=== PATIENT | female | born 1960 ===

== ENCOUNTER 2022-01-19 03:04 | Emergency (ER) | payer OTHER ==
--- OUTSIDE RECORDS SUMMARY | 2022-01-19 03:07 | XMS REPORT | Continuity of Care Document ---
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 UR HCG QUAL (test NEGATIVE 1. Very d ilute urine code = HCGQLU) specimens, as indicated by a lowspecific g ravity, may not contain rep resentative levels ofhCG. 2 . False negative result s may occur when the levels of hCGare below the sensi tivity level of the test. If is still suspec dann, a first morningurine sp ecimen should be colle cted 48 hours later and tested. COVID 19 Asymptomatic IH [id number] 13:00:00 Test Item Value Reference Range Interpretation Comments COVID 19 NEGATIVE NEGATIVE This test has b een Asymptomatic IH AG authorize d only for the (test code = detection ofpro teins from COVNONPUIAG) SARS-CoV-2, not for any other viruses orpathogens. Ne gative results should be treated as presumptive andconfirmed wi th a molecular assay , if necessary for patientmanageme nt. Negative result s do not rule out COVID- 19 andshould not b e used as the sole basis for treatment orpat ient management deci sions, including infec tion controldecision s. Negative result s should be considered i n thecontext of a patient's recent exposure s, history and thepresence of clinical signs and symptoms consis tent withCOVID-19. T his test has not been FD A cleared or approved; th e test hasbeen authorpedrito linares by FDA under an Emerge ncy Use Authorization(E UA) for use by laborato umang certified under the CLIA thatmeet the re quirements to perform mode rate, high or waivedcomple xity tests. This margarita t is authorized for use at thePoint of Car e (POC), i.e., in patien t care settingsoperati ng under a CLIA Certificat e of Waiver, Certifi malu ofCompliance, o r Certificate of Accreditation. This test is only authori milagros for the duration of thedeclaration that circumstances e xist justifying theauthorizatio n of emergency use o f in vitro diagnostic test sfor detection and/o r diagnosis of CO VID-19 under Rgpleie59 4(b)(1) of the Act, 21 U.S .C. 360bbb-3(b)(1), unless theauthorizatio n is terminated or r evoked sooner.
[2022-01-19] MEDS ORDERED: KETOROLAC 30 MG/ML INJ ONE (03:35)
[2022-01-19] MEDS ORDERED: NA CHLORIDE 0.9% 1,000 ML ONE (03:35)
[2022-01-19] MEDS ORDERED: ONDANSETRON 4 MG/2 ML VIAL ONE (03:35)
[2022-01-19 03:36] LABS: Absolute Lymphocytes (CBC) 1.5 K/uL (0.7-4.9); Hematocrit 44.1 % (36.0-45.0); Lymphocytes % 12.1 % (15.3-44.8); MCV 84.9 fL (80-100); MPV 8.3 fL (7.6-11.3)
[2022-01-19 03:54] LABS: Albumin 3.8 g/dL (3.4-5.0); Bilirubin Total 0.3 mg/dL (0.2-1.0); Potassium 3.5 mmol/L (3.5-5.1)
[2022-01-19 04:19] LABS: Urine Blood 1+ (Negative); Urine Glucose Negative (Negative); Urine Protein Negative (Negative); Urine Specific Gravity 1.025 (1.005-1.030)
[2022-01-19 04:59] LABS: Urine Bacteria <20 /HPF (<20); Urine Mucus 2+ /HPF (None Seen); Urine RBC <5 /HPF (None Seen)
--- NOTE | 2022-01-19 07:08 | ER ---
Nurse's Notes [facility] Name: Jenny Gonzalez Age: 61 yrs Sex: Female : 1960 Arrival Date: 01/19/2022 Time: 03:07 Bed 13 Private MD: Diagnosis: Kidney stone;Left Flank pain Presentation: 01/19 03:16 Chief complaint: Patient states: Sudden LLQ pain while driving home around 2230. ke1 Coronavirus screen: Vaccine status: Patient reports receiving the 2nd dose of the covid vaccine. Ebola Screen: No symptoms or risks identified at this time. Initial Sepsis Screen: Does the patient meet any 2 criteria? No. Patient's initial sepsis screen is negative. Does the patient have a suspected source of infection? No. Patient's initial sepsis screen is negative. Risk Assessment: Do you want to hurt yourself or someone else? Patient reports no desire to harm self or others. Onset of symptoms was January 18, 2022 at 22:30. 03:16 Method Of Arrival: Wheelchair [facility] 03:16 Acuity: SEBASTIEN 3 ke1 Triage Assessment: 03:22 General: Appears uncomfortable, Behavior is crying. Pain: Complains of pain in llQ. GI: ke1 Reports lower abdominal pain. Historical: - Allergies: 03:20 PENICILLINS; ke1 03:20 Morphine; ke1 03:20 Codeine; ke1 03:20 Ciprofloxacin; ke1 03:20 Zithromax; ke1 03:20 Erythromycin; ke1 - PMHx: 03:20 Seizure; ke1 - PSHx: 03:20 knee replacement; ke1 - Immunization history:: Client reports receiving the 2nd dose of the Covid vaccine. - Social history:: Smoking status: Patient denies any tobacco usage or history of. Screenin:23 Abuse screen: Denies threats or abuse. Nutritional screening: No deficits noted. ke1 Tuberculosis screening: No symptoms or risk factors identified. Fall Risk None identified. Assessment: 03:20 GI: Abdomen is round non-distended. ke1 Vital Signs: 03:16 BP 177 / 109; Pulse 89; Resp 19; Temp 97.9; Pulse Ox 94% on R/A; Weight 95.25 kg; ke1 Height 5 ft. 8 in. (172.72 cm); Pain 10/10; 04:10 Pain 2/10; ke1 05:47 BP 162 / 73; Pulse 89; Resp 17; Temp 97.8; Pulse Ox 100% on R/A; Pain 0/10; ke1 03:16 Body Mass Index 31.93 (95.25 kg, 172.72 cm) ke1 ED Course: 03:07 Patient arrived in ED. ja2 03:08 Geronimo Delacruz DO is Attending Physician. ms3 03:16 Juan Carlos Singh RN is Primary Nurse. ke1 03:18 Triage completed. ke1 03:23 Arm band placed on left wrist. ke1 03:23 Bed in low position. Call light in reach. Side rails up X 1. ke1 03:27 Inserted saline lock: 20 gauge in right antecubital area, using aseptic technique. ds4 Blood collected. 03:45 CMP Sent. ke1 05:33 Stephon Genao MD is Referral Physician. ms3 05:45 No provider procedures requiring assistance completed. IV discontinued. ke1 07:08 CT Abd/Pelvis - Without Contrast In Process Unspecified. EDMS Administered Medications: 03:40 Drug: NS 0.9% 1000 ml Route: IV; Rate: 1 bolus; Site: right antecubital; ke1 04:30 Follow up: IV Status: Completed infusion ke1 03:40 Drug: Zofran (Ondansetron) 4 mg Route: IVP; Site: right antecubital; ke1 04:00 Follow up: Response: No adverse reaction ke1 03:40 Drug: Ketorolac 10 mg Route: IVP; Site: right antecubital; ke1 04:10 Follow up: Pain 2/10 Adult; Response: Marked relief of symptoms; Pain is decreased ke1 Medication: 05:47 VIS not applicable for this client. ke1 Outcome: 05:34 Discharge ordered by . ms3 05:46 Discharged to home ambulatory. ke1 05:46 Condition: good 05:46 Discharge instructions given to patient. 05:48 Patient left the ED. ke1 Signatures: Dispatcher [employer] EDMS Tanner Hinton ds4 Geronimo Delacruz DO DO ms3 Rufina Polanco ja2 Juan Carlos Singh RN RN ke1 Corrections: (The following items were deleted from the chart) 05:46 05:46 GI: ke1 ke1
--- NOTE | 2022-01-19 07:08 | EDPHYS ---
Physician Documentation [facility] Name: Jenny Gonzalez Age: 61 yrs Sex: Female : 1960 Arrival Date: 01/19/2022 Time: 03:07 Bed 13 Private MD: ED Physician Geronimo Delacruz HPI: 01/19 03:27 This 61 yrs old Female presents to ER via Wheelchair with complaints of Vomiting, ms3 Abdominal Pain, Flank Pain. 03:27 The patient presents to the emergency department with abdominal pain, of the left lower ms3 quadrant, described as sharp, and does not radiate. Onset: The symptoms/episode began/occurred acutely, 5.5 hour(s) ago. Possible causes: unknown. The symptoms are aggravated by nothing. The symptoms are alleviated by nothing. Associated signs and symptoms: The patient has no apparent associated signs or symptoms. Severity of symptoms: At their worst the symptoms were moderate in the emergency department the symptoms are unchanged Pain is currently a 10 / 10. Historical: - Allergies: 03:20 PENICILLINS; ke1 03:20 Morphine; ke1 03:20 Codeine; ke1 03:20 Ciprofloxacin; ke1 03:20 Zithromax; ke1 03:20 Erythromycin; ke1 - PMHx: 03:20 Seizure; ke1 - PSHx: 03:20 knee replacement; ke1 - Immunization history:: Client reports receiving the 2nd dose of the Covid vaccine. - Social history:: Smoking status: Patient denies any tobacco usage or history of. ROS: 03:27 Constitutional: Negative for fever, and chills. ENT: Negative for injury, pain, and ms3 discharge, Neck: Negative for injury, pain, and swelling, Cardiovascular: Negative for chest pain, and palpitations. Respiratory: Negative for shortness of breath, cough, wheezing, and pleuritic chest pain, MS/Extremity: Negative for injury and deformity, Skin: Negative for injury, rash, and discoloration. 03:27 Abdomen/GI: Positive for abdominal pain. 03:27 Back: Positive for flank pain. 03:27 All other systems are negative. Exam: 03:27 Constitutional: This is a well developed, well nourished patient who is awake, alert, ms3 and in no acute distress. Head/Face: Normocephalic, atraumatic. Neck: Trachea midline, no cervical lymphadenopathy. Supple, full range of motion without nuchal rigidity, or vertebral point tenderness. No Meningismus. Chest/axilla: Normal chest wall appearance and motion. Nontender with no deformity. Cardiovascular: Regular rate and rhythm with a normal S1 and S2. No gallops, murmurs, or rubs. Normal PMI, no JVD. No pulse deficits. Respiratory: Lungs have equal breath sounds bilaterally, clear to auscultation and percussion. No rales, rhonchi or wheezes noted. No increased work of breathing, no retractions or nasal flaring. 03:27 Abdomen/GI: Inspection: abdomen appears normal, Bowel sounds: normal, Palpation: abdomen is soft and non-tender. Vital Signs: 03:16 BP 177 / 109; Pulse 89; Resp 19; Temp 97.9; Pulse Ox 94% on R/A; Weight 95.25 kg; ke1 Height 5 ft. 8 in. (172.72 cm); Pain 10/10; 04:10 Pain 2/10; ke1 05:47 BP 162 / 73; Pulse 89; Resp 17; Temp 97.8; Pulse Ox 100% on R/A; Pain 0/10; ke1 03:16 Body Mass Index 31.93 (95.25 kg, 172.72 cm) ke1 MDM: 03:26 Patient medically screened. ms3 06:00 Data reviewed: vital signs, nurses notes, radiologic studies, and as a result, I will ms3 discharge patient. Counseling: I had a detailed discussion with the patient and/or guardian regarding: the historical points, exam findings, and any diagnostic results supporting the discharge/admit diagnosis, lab results, radiology results, the need for outpatient follow up, to return to the emergency department if symptoms worsen or persist or if there are any questions or concerns that arise at home. ED course: Discussed labs and CT with patient. Patient to follow-up with Dr. Genao in 2 to 3 days. Patient understands and agrees with plan. All questions were answered. Return precautions discussed include worsening symptoms, or any other concerns. On reevaluation patient's pain improved, no apparent distress, nontoxic, ambulatory in the emergency department.. 01/19 03:27 Order name: CBC with Diff ms3 01/19 03:27 Order name: CMP ms3 01/19 03:27 Order name: Urine Microscopic Only ms3 01/19 03:27 Order name: CT Abd/Pelvis - Without Contrast ms3 01/19 03:27 Order name: IV Saline Lock; Complete Time: 03:28 ms3 01/19 03:27 Order name: Labs collected and sent; Complete Time: 03:28 ms3 01/19 03:27 Order name: Urine Dipstick-Ancillary (obtain specimen); Complete Time: 05:45 ms3 Administered Medications: 03:40 Drug: NS 0.9% 1000 ml Route: IV; Rate: 1 bolus; Site: right antecubital; ke1 04:30 Follow up: IV Status: Completed infusion ke1 03:40 Drug: Zofran (Ondansetron) 4 mg Route: IVP; Site: right antecubital; ke1 04:00 Follow up: Response: No adverse reaction ke1 03:40 Drug: Ketorolac 10 mg Route: IVP; Site: right antecubital; ke1 04:10 Follow up: Pain 03/29 Adult; Response: Marked relief of symptoms; Pain is decreased ke1 Disposition Summary: 01/19/22 05:34 Discharge Ordered Location: Home ms3 Condition: Stable ms3 Diagnosis - Kidney stone ms3 - Left Flank pain ms3 Followup: ms3 - With: Stephon Genao MD - When: 2 - 3 days - Reason: Recheck today's complaints Discharge Instructions: - Discharge Summary Sheet ms3 - Kidney Stones ms3 Forms: - Medication Reconciliation Form ms3 - Thank You Letter ms3 - Antibiotic Education ms3 - Prescription Opioid Use ms3 Prescriptions: - Flomax 0.4 mg Oral capsule - take 1 capsule by ORAL route once daily 1/2 hour following the same meal each ms3 day; 15 capsule; Refills: 0, Product Selection Permitted - Ibuprofen 600 mg Oral Tablet - take 1 tablet by ORAL route every 6 hours As needed take with food; 30 tablet; ms3 Refills: 0, Product Selection Permitted Signatures: Dispatcher [employer] Geronimo Hudson DO DO ms3 Juan Carlos Singh, RN RN ke1
[2022-01-19 07:14] VITALS: BP 162/73; TEMP 97.8; O2SAT 100
--- NOTE | 2022-01-19 19:29 | RAD REPORT ---
EXAM DESCRIPTION: CT - Abdomen Pelvis Wo Contrast - 01/19/2022 7:17 am CLINICAL HISTORY: The patient is 61 years old and is Female; LLQ abdominal pain TECHNIQUE: Axial computed tomography images of the abdomen and pelvis without intravenous contrast. Sagittal and coronal reformatted images were created and reviewed. This CT exam was performed usi ng one or more of the following dose reduction techniques: automated exposure control, adjustment o f the mA and/or kV according to patient size, and/or use of iterative reconstruction technique. COMPARISON: No relevant prior studies available. FINDINGS: Lung bases: Unremarkable. No mass. No consolidation. ABDOMEN: Liver: Unremarkable. Gallbladder and bile ducts: Gallbladder is surgically absent. No ductal dilation. Pancreas: Unremarkable. No ductal dilation. Spleen: Unremarkable. No splenomegaly. Adrenals: Unremarkable. No mass. Kidneys and ureters: 4 mm stone in the lower left ureter. Mild left hydroureteronephrosis and per inephric/periureteral stranding. Stomach and bowel: Scattered colonic diverticula. No obstruction. No mucosal thickening. PELVIS: Appendix: No findings to suggest acute appendicitis. Bladder: Unremarkable. Reproductive: Unremarkable as visualized. ABDOMEN and PELVIS: Intraperitoneal space: Unremarkable. No free air. No significant fluid collection. Bones/joints: No acute fracture. No dislocation. Soft tissues: Suggestion of a partially visualized left breast implant. Vasculature: Unremarkable. No abdominal aortic aneurysm. Lymph nodes: Unremarkable. No enlarged lymph nodes. IMPRESSION: 4 mm stone in the lower left ureter. Mild left hydroureteronephrosis and perinephric/per iureteral stranding. Electronically signed by: Ede Garcia MD 01/19/2022 5:06 AM C[facility]RIER Due to temporary technical issues with the PACS/Fluency reporting system, reports are being signed by the in house radiologists without review as a courtesy to insure prompt reporting. The interpreting radiologist is fully responsible for the content of the report.
== END 2022-01-19 05:30 | disposition home or self-care (01) ==
LOC: ER 03:04
DX: N20.0 Calculus of kidney (principal); Z88.1 Allergy status to other antibiotic agents; Z88.3 Allergy status to other anti-infective agents; Z88.5 Allergy status to narcotic agent
CPT/HCPCS: 96361; 85025; 36415; 80053; 74176; 96375; 96374; 99284; J7030; J2405; 81003; 81015